=== PATIENT | female | born 1935 | race Caucasian/White ===

== ENCOUNTER 2019-03-17 06:57 | Inpatient (IN) | payer OTHER ==
[2019-03-05 09:11] LABS: URINE BILIRUBIN NEGATIVE (Negative); URINE BLOOD NEGATIVE (Negative); URINE CLARITY CLEAR; URINE COLOR YELLOW; URINE GLUCOSE-RANDOM NEGATIVE (Negative); URINE KETONES TRACE (Negative); URINE LEUKOCYTES-REFLEX NEGATIVE (Negative); URINE NITRITE-REFLEX NEGATIVE (Negative); URINE PROTEIN NEGATIVE (Negative); URINE SPECIFIC GRAVITY >= 1.030 (1.005-1.030); URINE UROBILINOGEN 0.2 E.U./dl (0.2-1.0)
[~2019-03-17] VITALS: Ht 149.9 cm; Wt 44.9 kg
[~2019-03-17 06:57] MED LIST: ALLEGRA ALLERG180 MG PO; CALCIUM 600+D1 EACH PO; FOLIC ACID1 MG PO; MAGNESIUM250 M1 PO; SINGULAIR 10 MG10 M1 PO
[2019-03-17 12:15] VITALS: BP 153/56
--- NOTE | 2019-03-17 12:40 | NUR ---
PT ADMITTED TO UNIT WITH RT REVERSE SHOULDER . PT ALERT AND ORIENTED. ON ROOM AIR. LUNGS CLEAR, NONPRODUCTIVE COUGH. TAUGHT IS USE AND PRACTICED. PULSES 2+ ALL EXTREMITIES. NO FEELING IN RT ARM AT THIS TIME. BLOCK USED DURING SURGERY. CAP REFIL LESS THAN [address]. POLAR CARE TO SHOULDER. DEIDRE HOSE BILAT. FOOT PUMPS IN PLACE. 25% WEIGHT BEARING TO RIGHT ARM. PT DENIES ANY PAIN AT THIS TIME. PT EDUCATED ON USING CALL LIGHT WHEN NEEDING PAIN MEDS. PT COLD, GAVE WARM BLANKET AND PUT IN WORK ORDER TO WARM ROOM. REGULAR DIET. FALL RISK PRECAUTIONS IN PLACE. HOURLY ROUNDING COMPLETED. WILL CONTINUE TO MONITOR.
[2019-03-17 15:59] VITALS: BP 117/43
--- NOTE | 2019-03-17 17:02 | NUR ---
PT REMAINED ALERT AND ORIENTED. PT DENIES ANY PAIN AT THIS TIME. PT HAS VOIDED SINCE SURGERY. X1 ASSIST WITH GAIT BELT TO BATHROOM. POLAR PACK IN PLACE. FALL RISK PRECAUTIONS IN PLACE. HOURLY ROUNDING COMPLETED. WILL CONTINUE TO MONITOR.
[2019-03-17 19:45] VITALS: BP 120/51
[2019-03-18] VITALS: BP 157/60
--- NOTE | 2019-03-18 04:39 | NUR ---
PT REMAINED ALERT AND ORIENTED. VITALS, SpO2 STABLE RA. MEDS GIVEN ORDERED. PAIN MANAGED WITH TRAMADOL, IBUPROFEN. NO NAUSEA OR VOMITING. POLAR PACK IN PLACE WITH IMMOBILIZER ON RIGHT ARM. HOURLY ROUNDING COMPLETED. WILL CONTINUE TO MONITOR.
[2019-03-18 05:05] LABS: HEMATOCRIT 32.7 % (37.0-47.0); HEMOGLOBIN 10.9 gm/dL (12.0-15.0); MCH 29.3 pg (26.0-34.0); MCHC 33.3 g/dL (28.0-37.0); MCV 88.1 fL (80.0-100.0); MPV 10.5 fl. (7.2-11.1); RBC 3.71 mil/uL (4.20-5.00); WBC 9.7 thou/uL (4.0-11.0)
[2019-03-18 05:12] LABS: CALCIUM 8.8 mg/dL (8.5-10.1); CREATININE 0.5 mg/dL (0.6-1.3); POTASSIUM 4.1 mmol/L (3.5-5.1)
[2019-03-18 06:47] VITALS: BP 148/49
[2019-03-18 07:25] VITALS: BP 151/60
[2019-03-18 15:31] VITALS: BP 135/58
--- NOTE | 2019-03-18 15:53 | NUR ---
PT TRANSFERRED TO ROOM ROOM 318. PT REMAINED ALERT AND ORIENTED. PT HAD N/V THIS SHIFT. ZOFRAN AND PHENERGAN GIVEN ORDERED, FLUIDS RESTARTED. PAIN MEDS GIVEN ORDERED. PT WORKED WITH PT/OT. ICE PACK TO RT SHOULDER. FALL RISK PRECAUTIONS IN PLACE. HOURLY ROUNDING COMPLETED. REPORT GIVEN TO NEW NURSE.
--- NOTE | 2019-03-18 16:06 | PATH ---
[address] [address] PATHOLOGY RPT PROCEDURE Name: BONIFACIO SHEPPARD Room: [address] IN .R.#: [id number] Admission: 03/17/19 Date of : 35 Discharge: Report #: [id number] Path Case #: [id number] [facility] Accession Number: [id number] . 01 Material submitted: . arm - RIGHT ARM MASS, CYST. Modifiers: right . 01 Clinical history: . Right shoulder DJD . 02 Diagnosis: Right arm mass, cyst: - Ganglion cyst with mural fibrosis, mild chronic inflammation and dystrophic calcification and benign synovium, skeletal muscle and fibrofatty connective tissue. (LAURA:bianca; 03/18/2019) QMS/03/18/2019 . 02 Electronically signed: . Justin Cooney MD, Pathologist NPI- [id number] . 01 Gross description: . The specimen is received in formalin, labeled "Bonifacio Sheppard, right arm mass, cyst". Received is a segment of fibromembranous tissue measuring 6.7 x 1.0 x 0.6 cm in greatest dimensions. The specimen is submitted representatively in cassette A1. (CAA; 03/17/2019) QAC/QAC . 02 Pathologist provided ICD-10: M67.411 . 02 CPT . [id number] Specimen Comment: A courtesy copy of this report has been sent to Specimen Comment: [phone], , . Specimen Comment: Report sent to , DR NAVARRO / DR ESPARZA Performed at: [address], [place] [id number] MD Manuel Malloy MD Phone: [phone] Performed at: 02 [facility] [address], [place], [place] [id number] MD Justin Cooney MD Phone: [phone]
--- NOTE | 2019-03-18 18:52 | NUR ---
I ASSUMED CARE OF THE PATIENT AT 1630 A TRANSFER FROM [facility]. SHE IS ALERT AND ORIENTED X4 AND IS UP AD GARRY. I AGREE WITH THE ASSESSMENT OF THE PREVIOUS NURSE. PRN MEDS ARE CONTROLLING N/V. ICE PACKS/POLAR PACKS ARE ALTERNATED. WILL CONTINUE TO MONITOR.
[2019-03-18 20:00] VITALS: BP 117/46
[2019-03-19] VITALS: BP 114/39
[2019-03-19 04:00] VITALS: BP 120/44
[2019-03-19 04:35] LABS: HEMATOCRIT 32.5 % (37.0-47.0); MCH 30.2 pg (26.0-34.0); MCHC 33.8 g/dL (28.0-37.0); MCV 89.3 fL (80.0-100.0); MPV 10.3 fl. (7.2-11.1); RBC 3.64 mil/uL (4.20-5.00); WBC 8.9 thou/uL (4.0-11.0)
[2019-03-19 04:50] LABS: CALCIUM 8.5 mg/dL (8.5-10.1); CREATININE 0.5 mg/dL (0.6-1.3); MAGNESIUM 1.7 mg/dL (1.8-2.4); POTASSIUM 4.3 mmol/L (3.5-5.1)
--- NOTE | 2019-03-19 05:03 | NUR ---
ASSUMED CARE OF PT AT 1900 PT ALERT AND ORIENTED X4 VS AND ASSESSMENT AT PTS BASELINE. PT HAD POSITIVE CMS CHECKS TO RUE AND IS MAINTAINING WT BEARING LIMITATIONS. SHOULDER IMMOBILIZER AND POLAR CARE IN PLACE. WILL CONTINUE PLAN OF CARE.
[2019-03-19 08:00] VITALS: BP 131/65
--- NOTE | 2019-03-19 08:37 | NUR ---
LATE ENTRY FOR 03/18 1400-CM DID NOT SEE PT.TODAY. SHE HAD JUST RECEIVED PHENERGAN AND WAS SLEEPING SOUNDLY. NURSING SAID SHE HAD N/V MOST OF THE MORNING. NURSING ALSO STATED HER DAUGHTER WAS GOING TO BE OFF TO STAY WITH HER NEXT WEEK. PT.WANTED TO GO TO SNF FOR 2 DAYS UNTIL THE WEEKEND SO SHE WOULD HAVE SOMEONE TO HELP HER UNTIL HER DAUGHTER COULD COME. LEFT SKILLED FACILITY INFORMATION THAT CONTRACT WITH HER INSURANCE ON BEDSIDE TABLE FOR PT. HOWEVER, WILL TELL PT.THIS AM THAT FACILITY WOULD NOT TAKE FOR JUST A COUPLE OF DAYS AND INSURANCE WOULD NOT AUTHORIZE JUST FOR A COUPLE OF DAYS.
[2019-03-19 13:03] VITALS: BP 131/65
--- NOTE | 2019-03-19 13:26 | NUR ---
SW spoke with pt about dc planning and pt decided that she could return home with support; SW explained insurance would not auth only 2 days of skilled therapies and SNF would not want pt to only stay 2 days either. SHARON spoke again with pt and pt family; pt wanted to be able to take polar pac home and wanted to make sure that she did not have to pay anything to leave the hospital, SW explained billing would be sending information by mail after dc. SHARON informed nursing that pt/pt family ready to leave.
[2019-03-19] MEDS ORDERED: XARELTO10 MG PO (13:36)
[2019-03-19] MEDS ORDERED: COLACE100 MG PO (13:37)
[2019-03-19] MEDS ORDERED: METAMUCIL1 EAC1 PO (13:39)
[2019-03-19] MEDS ORDERED: PERCOCET PO (13:46)
--- NOTE | 2019-03-19 14:22 | NUR ---
ASSUMED CARE OF PATIENT AT APPROX 0730. ALERT AND ORIENTED X4. ASSESSMENT COMPLETED AND CHARTED. VSS ON ROOM AIR. PAIN COMPLAINT MINIMAL AND MANAGED WITH ORAL PAIN MEDICATION. SHOULDER IMMOBILIZER IN PLACE AND NWB STATUS MAINTAINED. PATIENT DISCHARGED TO HOME IN THE CARE OF HER DAUGHTER, REFUSED SKILLED FOR REHAB. PATIENT LEFT WITH ALL PERSONAL BELONGINGS, PRESCRIPTION AND DISCHARGE INFORMATION.
--- NOTE | 2019-03-19 15:38 | OP ---
[address] [address] OPERATIVE REPORT Name: BONIFACIO VERMA Room: [address] IN M.R.#: [id number] Admission: 03/17/19 Attend Phys: Sky Norwood Discharge: 03/19/19 Date of : 35 Report #: [id number] THIS REPORT FOR: //name// CC: Tom Rosen DATE OF SERVICE: 03/17/2019 PREOPERATIVE DIAGNOSES: 1. Right shoulder osteoarthritis. 2. Right arm mass. POSTOPERATIVE DIAGNOSES: 1. Right shoulder osteoarthritis. 2. Right arm mass. PROCEDURE: 1. Right reverse total shoulder arthroplasty. 2. Excision mass, 4 cm right arm down to bone. SURGEON: Jorge Alberto Chand II, DO PHARMACIST: JONY Hooper. ANESTHESIA: Per operative record. ESTIMATED BLOOD LOSS: 50 mL. ANTIBIOTICS: Per operative record. DRAINS: None. COMPLICATIONS: None. CONDITION: The patient is stable to recovery room. IMPLANTS USED: [address] reverse total shoulder arthroplasty system. DESCRIPTION OF PROCEDURE: The patient was taken to the operative suite, placed supine on the operative table and given appropriate anesthesia. The patient was then placed in modified beach chair position and all bony prominences were well padded and the right shoulder was sterilely prepped and draped. Surgery began by incision over the right mid biceps region, the skin and subcutaneous tissues. There was found to be a mass approximately 4 cm with cystic and fluid filled component. This was excised from the underlying soft tissues and bone and [place] [id number] OPERATIVE REPORT Name: BONIFACIO VERMA Room: [address] M.Irais.#: [id number] Admission: 03/17/19 Attend Phys: Sky Norwood Discharge: 03/19/19 Date of : 35 Report #: [id number] removed from the incision and sent for pathologic evaluation. This was then copiously irrigated and closed with a Vicryl and Monocryl stitch. Attention was then turned to the shoulder. Deltopectoral incision was then made over the anterior aspect of the right shoulder and carried down through the subcutaneous tissues. The deltopectoral interval was opened. The cephalic vein was protected and this was carried down through the subcutaneous tissues to the shoulder socket. The biceps tendon was tenotomized to the pectoralis and removed from the intra-articular portion. The subscap was then reflected off the proximal humerus and it was exposed. Utilizing intramedullary guides, the humerus was broached up to appropriate size. The intramedullary alignment guide was then applied, checked for rotational alignment, appropriate rotation with the technique guide and appropriate cut was made to remove the proximal aspect of the humerus. This head cap was then removed and a protective metal cap was applied. The humerus was then placed behind the glenoid and retractors were applied. Excess glenoid labrum was removed as well as the biceps insertion on the proximal glenoid. The glenoid alignment tool was then applied. Intramedullary anahy was then placed into the center of the glenoid at the slightly more inferior portion with built-in inferior tilt alignment applied. Reamer guide was then utilized to ream the glenoid down to punctate bleeding throughout the entire contact region of the glenosphere. The glenosphere was then applied with the central cancellous screw placed in appropriate fashion. Three locking screws were then applied through the glenoid baseplate and compressed to appropriate fashion. Appropriate glenosphere was then selected with the more eccentric version placed inferiorly and this was malleted into position. Attention was then turned back to the humerus, it was broached in appropriate fashion and sized to appropriate size, trials were then performed up to an appropriate size polyethylene to give no evidence of dislocation and full range of motion of the shoulder. These appropriate trials were then removed. The final was then selected and malleted into position. The shoulder was once again reduced in near anatomic fashion to allow for full forward flexion, abduction as well as internal and external rotation to approximately 35 degrees without any evidence of impingement or scapular notching. Final irrigation was performed of the wound. The subscap was then reapproximated to the proximal humerus. The deltopectoral incision was then closed utilizing a 1 Vicryl in a running fashion. Skin was closed with 2-0 Vicryl and running Monocryl stitch. Dermabond and sterile dressing as well as UltraSling were applied. The patient was transported to the recovery room in stable condition. Counts correct throughout the procedure. <ELECTRONICALLY SIGNED> By: Jorge Alberto Chand II, DO 03/19/19 1538 [id number] Alberto Chand II, DO /nt
== END 2019-03-19 14:15 | disposition home health service (06) | DRG 483 ==
LOC: M.TBA 06:57 → EDSTATUS 11:15 → M.SUR 11:15 → M.PRE 11:17 → M.ORTHSURG 12:02 → M.PRE 13:07 → M.3W 03-18 15:54
PROVIDERS: Family Medicine; Orthopaedic Surgery; ADMIT Internal Medicine
PROC: 0RRJ00Z Replacement of Right Shoulder Joint with Reverse Ball and Socket Synthetic Substitute, Open Approach (ICD-10-PCS; principal; 2019-03-17)
PROC: 0JBD3ZZ Excision of Right Upper Arm Subcutaneous Tissue and Fascia, Percutaneous Approach (ICD-10-PCS; principal; 2019-03-17)
DX: M19.011 Primary osteoarthritis, right shoulder (principal); J30.2 Other seasonal allergic rhinitis; D64.9 Anemia, unspecified; Z91.041 Radiographic dye allergy status; Z91.02 Food additives allergy status; Z91.018 Allergy to other foods; Z88.8 Allergy status to other drugs, medicaments and biological substances; Z91.010 Allergy to peanuts; Z88.0 Allergy status to penicillin; Z91.013 Allergy to seafood; Z82.49 Family history of ischemic heart disease and other diseases of the circulatory system; Z90.49 Acquired absence of other specified parts of digestive tract